=== PATIENT | female | born 1960 | race Caucasian/White ===

== ENCOUNTER 2020-02-23 10:29 | Emergency (ER) | payer BC ==
[~2020-02-23] VITALS: Ht 165.1 cm; Wt 94.0 kg
[~2020-02-23 10:29] MED LIST: ATENOLOL50 MG PO; LANTUS100 MG/ML SC; LISINOPRIL20 MG PO; METFORMIN500 M2 PO
[2020-02-23] MEDS ORDERED: ISOSORB MONO30 MG PO (10:59)
[2020-02-23] MEDS ORDERED: METOPROL TAR100 MG PO (11:00)
[2020-02-23] MEDS ORDERED: BACTRIM DS1 TAB PO (11:01)
[2020-02-23] MEDS ORDERED: LEVEMIR100 UNIT/M SC (11:01)
[2020-02-23] MEDS ORDERED: PLAVIX75 MG PO (11:02)
[2020-02-23] MEDS ORDERED: ATORVASTATIN CA80 MG PO (11:02)
[2020-02-23] MEDS ORDERED: ASPIRIN 81 LOW81 MG PO (11:03)
[2020-02-23] MEDS ORDERED: NOVOLIN R100 UNIT/M (11:03)
[2020-02-23 11:17] LABS: HEMATOCRIT 39.6 % (37.0-47.0); HEMOGLOBIN 13.4 g/dl (12.0-16.0); IMMATURE GRANULOCYTES 0.4 % (0.0-5.0); MEAN CORPUSCULAR HGB 30.8 pG CALC (26.0-32.0); MEAN CORPUSCULAR HGB CONC 33.8 g/dL CAL (32.0-36.0); NEUT# 6.77 thou/uL (2.00-7.15); RED BLOOD COUNT 4.35 mill/uL (4.20-5.60); RED CELL DISTRI WIDTH 12.3 % (11.5-15.5)
[2020-02-23 11:31] LABS: BUN 19 mg/dL (8-23); BUN/CREATININE RATIO 22 (12-20 (CALC)); CHLORIDE 104 mmol/l (95-108); CREATININE 0.9 mg/dL (0.5-1.0); GFR > 60 ML/MIN (>=60 (CALC)); GFR FOR AFR.AMER. > 60 ML/MIN (>=60 (CALC)); SODIUM 134 mmol/l (137-146)
[2020-02-23 11:42] LABS: ANION GAP 17 (6-22 (CALC)); CARBON DIOXIDE 18 mmol/l (22-30)
[2020-02-23 12:52] VITALS: BP 121/59
== END 2020-02-23 12:54 | disposition short-term general hospital (02) | DRG 282 ==
LOC: ED 10:29
PROVIDERS: Family Medicine
DX: I21.4 Non-ST elevation (NSTEMI) myocardial infarction (principal); I10 Essential (primary) hypertension; E11.9 Type 2 diabetes mellitus without complications; I25.2 Old myocardial infarction; Z79.4 Long term (current) use of insulin; Z20.828 Contact with and (suspected) exposure to other viral communicable diseases
CPT/HCPCS: J1644

== ENCOUNTER 2021-05-08 11:02 | Inpatient (IN) | payer OTHER ==
[~2021-05-08] VITALS: Ht 165.1 cm; Wt 100.0 kg
[~2021-05-08 11:02] MED LIST changes: +ASPIRIN 81 LOW81 MG PO; +ATORVASTATIN CA80 MG PO; +BACTRIM DS1 TAB PO; +ISOSORB MONO30 MG PO; +LEVEMIR100 UNIT/M SC; +METOPROL TAR100 MG PO; +NOVOLIN R100 UNIT/M; +PLAVIX75 MG PO
--- NOTE | 2021-05-08 11:03 | NUR ---
PATIENT STATES STROKE SYMPTOMS STARTING 3 DAYS PRIOR WITH RIGHT UPPER AND LOWER EXTRINITY DRIFT, RIGHT FACIAL DROOP, ATAXIA TO UPPER AND LOWER EXTREMITIES AND DYSARTHRIA. PATIENT HAS NOT ASPHASIA, VISUAL FIELD DEFICITS OR SENSATION LOSS. MD NOTIFIED OF PATIENT STATUS. PATIENT ALERT AND ORIENTEED TIMES THREE AND DENIES ANY PAIN AT THIS TIME
[2021-05-08 11:28] LABS: GFR > 60 ML/MIN (>=60 (CALC)); GFR FOR AFR.AMER. > 60 ML/MIN (>=60 (CALC))
--- NOTE | 2021-05-08 12:07 | NUR ---
DAUGHTER REMAINS BEDSIDE WITH PATIENT
[2021-05-08 12:15] LABS: HEMATOCRIT 38.9 % (37.0-47.0); HEMOGLOBIN 12.9 g/dl (12.0-16.0); IMMATURE GRANULOCYTES 0.4 % (0.0-5.0); MEAN CELL VOLUME 95.1 fL CALC (80.0-100.0); MEAN CORPUSCULAR HGB 31.5 pG CALC (26.0-32.0); MEAN CORPUSCULAR HGB CONC 33.2 g/dL CAL (32.0-36.0); NEUT# 3.68 thou/uL (2.00-7.15); RED BLOOD COUNT 4.09 mill/uL (4.20-5.60); RED CELL DISTRI WIDTH 12.1 % (11.5-15.5)
[2021-05-08 12:22] LABS: ALKALINE PHOSPHATASE 67 u/l (38-126); BUN 25 mg/dL (8-23); BUN/CREATININE RATIO 33 (12-20 (CALC)); CHLORIDE 101 mmol/l (95-108); CREATININE 0.7 mg/dL (0.5-1.0); GFR > 60 ML/MIN (>=60 (CALC)); GFR FOR AFR.AMER. > 60 ML/MIN (>=60 (CALC)); POTASSIUM 4.8 mmol/l (3.5-5.1); SODIUM 136 mmol/l (137-146); TOTAL PROTEIN 7.2 g/dL (6.3-8.2)
[2021-05-08 12:23] LABS: ALBUMIN 4.4 g/dL (3.2-5.0); ANION GAP 18 (6-22 (CALC)); BILIRUBIN, TOTAL 0.4 mg/dL (0.0-1.4); CARBON DIOXIDE 22 mmol/l (22-30); SGOT/AST 44 u/l (9-36)
--- NOTE | 2021-05-08 12:30 | NUR ---
PATIENT OFFERED FLUIDS AND SNACK.
[2021-05-08 13:01] LABS: PROTHROMBIN TIME 10.5 SECONDS (9.0-12.5)
--- NOTE | 2021-05-08 13:10 | NUR ---
PHYSICAL THERAPY BEDSIDE
[2021-05-08 14:00] VITALS: BP 137/68
--- NOTE | 2021-05-08 14:10 | NUR ---
SPEECH THERAPY BEDSIDE JENNIFER TAYLOR
--- NOTE | 2021-05-08 14:25 | NUR ---
SECOND ATTEMPT TO CALL REPORT TO FLOOR
--- NOTE | 2021-05-08 14:58 | NUR ---
REPORT TO NEY ON MED SURG
--- NOTE | 2021-05-08 15:07 | NUR ---
MARLA BRIGGS CURRENTLY BEDSIDE WITH PATIENT
[2021-05-08 15:50] VITALS: BP 156/83
--- NOTE | 2021-05-08 15:53 | NUR ---
PT ARRIVED ON FLOOR VIA STRETCHER. PT ALERT AND ORIENTED X4 PT DENIES SOB OR PAIN. VS AND ASSESSMENT COMPLETE IV PATENT AND FLUSHED. LUNG SOUNDS CLEAR AND BREATHS EVEN AND NONLABORED. NIHSS ASSESSMENT COMPLETE. ABDOMEN NORMAL WITH BOWEL SOUNDS ACTIVE C2OTYAT. PERIPHERAL PULSES PALPABLE BILATERALLY UPPER AND LOWER. PT ORIENTED TO ROOM AND CALL LIGHT. SAFETY PRECAUTIONS IN PLACE AND CALL LIGHT WITHIN PATIENTS REACH
--- NOTE | 2021-05-08 16:00 | NUR ---
PT RESTING COMFORTABLY IN BED. PT DENIES PAIN OR DISCOMFORT. WILL MONITOR CLOSELY
[2021-05-08 16:38] VITALS: BP 137/68
[2021-05-08 19:00] VITALS: BP 127/75
--- NOTE | 2021-05-08 20:00 | NUR ---
PT ASSISTED REPOSITIONING IN THE BED. SHE WAS ABLE TO SELF BOOST WITH BED PLACED FLAT. WE DISCUSSED USE OF EXTREMETIES AND SHE EXPRESSED WANTING TO REMAIN INDEPENDENT. POC DISCUSSED AT THIS TIME. ASSESSMENT COMPLETED. MILD WEAKNESS AND SLIGHT DRIFT TO RIGHT EXTREMETIES. VERY MILD R.SIDED FACIAL DROOP. PT REPORTS HAVING DIFFICULTY TALKING CLEARLY, BOOKMOBILE CLERK IS ABLE TO UNDERSTAND THE PT'S SPEECH AND SHE DOES NOT SOUND GARBLED, BUT DOES APPEAR TO BE WORKING HARD TO MAKE SURE HER SPEECH IS CLEAR. PT ASKING FOR A SNACK, RIBBON SWEATBAND OPERATOR IN AT THIS TIME FOR ACCU CHECK.
[2021-05-09] VITALS (7 sets, daily range): BP systolic 97–143; BP diastolic 48–87
--- NOTE | 2021-05-09 01:35 | NUR ---
PT SLEEPING, NO S/O DISTRESS NOTED. CALL LIGHT AT BEDSIDE.
--- NOTE | 2021-05-09 03:52 | NUR ---
PT SLEEPING, RESP APPEAR EVEN AND NON-LABORED. NO S/O DISTRESS NOTED. CALL LIGHT W/IN REACH.
[2021-05-09 05:48] LABS: HEMATOCRIT 39.3 % (37.0-47.0); HEMOGLOBIN 13.1 g/dl (12.0-16.0); MEAN CELL VOLUME 95.2 fL CALC (80.0-100.0); MEAN CORPUSCULAR HGB 31.7 pG CALC (26.0-32.0); MEAN CORPUSCULAR HGB CONC 33.3 g/dL CAL (32.0-36.0); RED BLOOD COUNT 4.13 mill/uL (4.20-5.60); RED CELL DISTRI WIDTH 12.2 % (11.5-15.5)
[2021-05-09 05:59] LABS: ANION GAP 16 (6-22 (CALC)); BUN 18 mg/dL (8-23); BUN/CREATININE RATIO 26 (12-20 (CALC)); CARBON DIOXIDE 23 mmol/l (22-30); CHLORIDE 102 mmol/l (95-108); CHOLESTEROL HDL RATIO 6.7 (<4.4 (CALC)); CREATININE 0.7 mg/dL (0.5-1.0); GFR > 60 ML/MIN (>=60 (CALC)); GFR FOR AFR.AMER. > 60 ML/MIN (>=60 (CALC)); HDL CHOLESTEROL 28 mg/dL (>=40); MAGNESIUM 1.2 mg/dL (1.6-2.3); POTASSIUM 4.6 mmol/l (3.5-5.1); SODIUM 136 mmol/l (137-146); TOTAL CHOLESTEROL 188 mg/dl (0-199)
[2021-05-09 06:26] LABS: TOTAL TRIGLYCERIDES 542 mg/dl (30-149)
--- NOTE | 2021-05-09 06:54 | NUR ---
REPORT REC FROM Dominga KIM RN
--- NOTE | 2021-05-09 08:00 | NUR ---
PT AWAKE AND RESTING IN BED. PT ALERT AND ORIENTED. PT DENIES ANY PAIN OR DISCOMFORT AT THIS TIME. RIGHT SIDED DRIFT HAS IMPROVED. VS AND ASSESSMENT COMPLETE. PT SR ON TELE. IV PATENT AND FLUSHED. SAFETY PRECAUTIONS MAINTAINED AND CALL LIGHT WITHIN PATIENTS REACH. WILL MONITOR PATIENT CLOSELY
--- NOTE | 2021-05-09 08:42 | NUR ---
PT TAKEN TO MRI ACCOMPANIED BY [facility], PT IN STABLE CONDITION.
--- NOTE | 2021-05-09 10:56 | NUR ---
DR HILLMAN AND Ousmane TURNER APRN AT BEDSIDE DISCUSSING POC
--- NOTE | 2021-05-09 12:00 | NUR ---
PT RESTING IN BED. PT DENIES ANY PAIN AT THIS TIME. SAFETY MEASURES MAINTAINED. CALL LIGHT WITHIN REACH. WILL CONTINUE TO MONITOR CLOSELY
--- NOTE | 2021-05-09 14:22 | NUR ---
CINDY COMPLETED GROOMING SEATED IN RECLINER CHAIR. SHE DEMONSTRATED MOD DIFFICULTY REACHING UP AND BEHIND HER HEAD WITH R HAND FOR HAIR BRUSHING BUT CONTINUED TO INCORPORATE AFFECTED UPPER EXTREMITY AFTER RECOMMENDATION. DISCUSSED PTS CLOF WITH REGARDS TO ADLS AND PT INSTRUCTED TO INCORPORATE USE OF AFFECTED UE OFTEN POSSIBLE FOR BEST OUTCOMES. PT HAS SUPPORTIVE AND FAMILY MEMBERS AND WANTS TO RETURN HOME. SHE WAS INSTRUCTED TO CONSIDER OP THERAPY. AM-PAC SCORE 18.
[2021-05-09] MEDS ORDERED: TRICOR145 MG PO (14:33)
--- NOTE | 2021-05-09 16:00 | NUR ---
PT RESTING IN BED. PT HAS NO NEEDS AT THIS TIME. SAFETY MEASURES MAINTAINED AND CALL LIGHT WITHIN PATIENTS REACH. WILL CONTINUE TO MONITOR PT CLOSELY
--- NOTE | 2021-05-09 17:00 | NUR ---
WALKED INTO PATIENTS ROOM AND PT WAS TALKING TO HER DAUGHTER. HER DAUGHTER ASKED TO SPEAK TO ME WHEN SHE REALIZED THAT I WAS IN THE PATIENTS ROOM. DAUGHTER WAS VERY UP AND YELLING ABOUT HER MOTHER NOT RECEIVING THE MEAL FROM [employer], A WALKER AND SOME PERSONAL ITEMS THAT SHE BROUGHT TO HER MOTHER. I APOLOGIZED FOR THE DELAY IN HER MOTHER GETTING THE ITEMS. THE DAUGHTER CONTINUES TO YELL AND SCREAM ABOUT THE FOOD, STATING THAT HER MOTHER CAN EAT WHATEVER SHE WANTS. I AGREED WITH THE DAUGHTER. I ALSO INFORM THE DAUGHTER THAT HER MOTHER'S BLOOD SUGAR HAS BEEN OVER 300 TODAY AND HER MOTHER WAS IN THE PROCESS OF EATING THE APPROPRIATE NUTRITIONAL MEAL SERVED BY OF DIETARY DEPT. THE DAUGHTER THEN STATES THAT SHE IS COMING TO GET HER MOTHER BECAUSE WE HAVE NEGLECTED HER ALL DAY. I HANDED THE PHONE BACK TO THE PT AND EDUCATED THE PATIENT ON AN AMA SIGN OUT. PT VERBALIZED UNDERSTANDING.
--- NOTE | 2021-05-09 17:07 | NUR ---
Patient underwent PT intervention today. Patient did B LE seated AROM exercises doing hip flexion, hip adduction, hip abduction, hamstring curls, knee extension, gluteal squeezes, and ankle pumps for 2 x 10 reps with occasional verbal and tactile cuing to help decrease trick movements and fall risks. Patient did log rolling bed mobility and sit to stand push off transfer ADLs for 1-2 reps with occasional verbal and tactile cuing to help decrease fall risks. Patient did gait training for 10 feet x 2 to 3 reps with occasional lateral swaying with CGA x 1 on level surfaces.
--- NOTE | 2021-05-09 19:15 | NUR ---
GARLAND, Day nurse Barbie are both in with pt. Family x2 at bedside. I introduced myself, conversed with the pt regarding care and status at this time. We discussed POC, repositioning and comfort measures to be provided and that are expected. Pt reports being okay at this time. Family appear calm and understanding also at this time. They were also involved with this discussion. I reoriented her to the call light system and encouraged her to be sure and let us know in this manner if any needs are unmet, she verbalized understanding at this time.
--- NOTE | 2021-05-09 19:45 | NUR ---
Assessment along with neuro assessment of pt was performed at this time. Her daughter discussed her positioning with me and mentioned a small wound to her buttocks. I asked if I could check this, we assessed her to have two small stage II pressure wounds to her L and R buttocks, with the assistance of HEALTH PROMOTION MANAGER and daughter. The pt reports that she sits and sleeps in her recliner and that she knows this is why she has this, so I attempted to educate her on shifting weight/pressure using positioning and pillows. She agreed to allow us to reposition her with pillows q2hrs for pressure care. I will follow up with picture and wound dressing as pt will allow. Family and pt deny any other concerns at this time.
--- NOTE | 2021-05-09 21:00 | NUR ---
Pt medicated as orders provide and left sitting on the side of the bed, she voiced wanting to sit up for a little while. I encouraged her to call if she needed assistance repositioning back into the bed, she verbalized understanding.
--- NOTE | 2021-05-09 21:09 | NUR ---
PT MEDICATED ORDERS PROVIDE. SHE REPOSITIONED HERSELF W/OUT ASSISTANCE TO SIDE OF THE BED. SHE IS ALSO ABLE TO EXTEND BOTH ARMS WITH SOME MODERATE LIMITATION TO R.ARM, BUT SHE IS ABLE TO REACH FOR FOOD/DRINK IF CLOSE. ACCU-CHECK 260, INSULIN PROVIDED ORDERS PROVIDE AND PT EATING SNACK AT THIS TIME. ICE WATER FRESHENED ALSO AT THIS TIME. WE REVIEWED USE OF CALL LIGHT, SHE DENIED OTHER ASSISTANCE NEEDS AT THIS TIME. I REMINDED HER OF CALL LIGHT USE FOR ANY NEEDS AT ALL THAT MAY COME UP, SHE VERBALIZED AGREEMENT.
[2021-05-10] VITALS: BP 133/68
--- NOTE | 2021-05-10 00:05 | NUR ---
Pt provided portable fan to "circulate the air" she did not want it blowing on her. Picture taken of small wound to buttocks, documented in the chart and dressing placed (aquacell) for pressure relief. Pt assisted repositioning in the bed and pillow placed for pressure relief. I encouraged her to call if any other needs arise, reoriented her to the call light. She stated, "I won't do that." I advised her that she needs to call for assistance when needed and reminded her that there is no way for us to know and meet her needs if she does not let us know what they are and when. Pt replied, "I know." Pt is pleasant, locx4.
[2021-05-10 04:00] VITALS: BP 111/60
[2021-05-10 06:02] LABS: HEMATOCRIT 39.8 % (37.0-47.0); HEMOGLOBIN 13.4 g/dl (12.0-16.0); MEAN CELL VOLUME 94.8 fL CALC (80.0-100.0); MEAN CORPUSCULAR HGB 31.9 pG CALC (26.0-32.0); MEAN CORPUSCULAR HGB CONC 33.7 g/dL CAL (32.0-36.0); RED BLOOD COUNT 4.2 mill/uL (4.20-5.60); RED CELL DISTRI WIDTH 12.1 % (11.5-15.5)
[2021-05-10 06:13] LABS: ANION GAP 17 (6-22 (CALC)); BUN 20 mg/dL (8-23); BUN/CREATININE RATIO 24 (12-20 (CALC)); CARBON DIOXIDE 22 mmol/l (22-30); CHLORIDE 101 mmol/l (95-108); CREATININE 0.8 mg/dL (0.5-1.0); GFR > 60 ML/MIN (>=60 (CALC)); GFR FOR AFR.AMER. > 60 ML/MIN (>=60 (CALC)); POTASSIUM 4.7 mmol/l (3.5-5.1); SODIUM 136 mmol/l (137-146)
[2021-05-10 06:29] LABS: MAGNESIUM 1.7 mg/dL (1.6-2.3)
--- NOTE | 2021-05-10 07:25 | NUR ---
REPORT REC FROM Dominga KIM RN
--- NOTE | 2021-05-10 08:08 | NUR ---
PT SITTING IN CHAIR EATING BREALFAST. A&O X4. NO DISTRESS NOTED. WEAKNESS NOTED TO RT SIDE, WEAKER HAND VAULT MANAGER COMPARED TO THE LEFT. DRIFTS NOTED TO RT ARM/LEG. PT ASSISTED TO THE BATHROOM, WEAKNED GAIT NOTED. AQUACEL DRESSING APPLIED BY Dominga KIM RN DUE TO 2 AREAS OF BREAKDOWN PT REPORTS BREAKDOWN IS NOT NEW HAS BEEN ONGOING FOR A WHILE, DRESSING REMOVED PER PTS REQUEST. CLEAR BREATH SOUNDS UPON AUSCULTATION. ACTIVE BOWEL SOUNDS X4. PT ASSISTED BACK INTO CHAIR, IV REMAINS HEALTHY AND PATENT, #20G LH, MAGNESIUM SULFATE 2GM INITIATED AT THIS TIME. ASSESSMENT COMPLETED. DISCUSSED POC. CALL LIGHT WITHIN REACH, PT ENCOURAGED TO CALL WITH ANY NEEDS.
[2021-05-10 08:10] VITALS: BP 123/73
[2021-05-10] MEDS ORDERED: ENTERIC COATED325 MG PO (09:48)
--- NOTE | 2021-05-10 10:37 | NUR ---
Patient underwent PT intervention today. Patient did B LE AROM exercises doing hip flexion, hip adduction, hip abduction, hamstring curls, gluteal squeezes, knee extension, and ankle pumps for 10 reps x 2 sets with occasional verbal and tactile cuing. Patient did sit to stand push off transfer ADLs (2 to 3 reps) with constant verbal and tactile cuing to help decrease trick movements and fall risks. Patient did gait training with 4 WW with occasional verbal and tactile cuing with patient covering approximately 10 feet x 4 reps with occasional R LE decreased elevation, with SBA x 1.
--- NOTE | 2021-05-10 11:50 | NUR ---
PT SITTING IN CHAIR EATING LUNCH. NO NEEDS REPORTED AT THIS TIME. CALL LIGHT WITHIN REACH.
--- NOTE | 2021-05-10 14:55 | NUR ---
Discharge instructions given. Patient verbalizes understanding of same. Discharged in stable condition via wheelchair to home with staff. All belongings sent with pt. Pt given information regarding Physical therapy. Pt educated on new medications. Encouraged to follow up with PCP and neurologist.
== END 2021-05-10 14:55 | disposition home or self-care (01) | DRG 65 ==
LOC: ED 11:02 → ED-I 13:11 → ED 13:35 → MS2 13:36
PROVIDERS: Family Medicine; Nurse Practitioner; ADMIT Hospitalist; ATTEND Hospitalist
DX: I63.89 Other cerebral infarction (principal); G81.91 Hemiplegia, unspecified affecting right dominant side; I10 Essential (primary) hypertension; E11.9 Type 2 diabetes mellitus without complications; E78.1 Pure hyperglyceridemia; R26.0 Ataxic gait; R47.81 Slurred speech; R29.810 Facial weakness; R29.706 NIHSS score 6; I25.2 Old myocardial infarction; Z86.73 Personal history of transient ischemic attack (TIA), and cerebral infarction without residual deficits; Z95.5 Presence of coronary angioplasty implant and graft; Z79.4 Long term (current) use of insulin; Z20.822 Contact with and (suspected) exposure to COVID-19; Z79.02 Long term (current) use of antithrombotics/antiplatelets; Z79.82 Long term (current) use of aspirin
CPT/HCPCS: J1650; J3475